=== PATIENT | female | born 2000 | race Caucasian/White ===

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

== ENCOUNTER 2019-01-03 23:16 | Emergency (ER) | payer OTHER ==
[~2019-01-03] VITALS: Ht 167.6 cm; Wt 78.2 kg
[~2019-01-03 23:16] MED LIST: BIRTH CONTROL; ULTRAM 50MG TAB50 MG PO; ZOFRAN ODT4 MG PO; ZONEGRAN 100MG100 MG PO
[2019-01-03 23:27] VITALS: BP 127/66; PULSE 83; TEMP 99.2
== END 2019-01-04 00:58 | disposition home or self-care (01) ==
LOC: COL.ER 23:16
DX: S56.911A Strain of unspecified muscles, fascia and tendons at forearm level, right arm, initial encounter (principal); R56.9 Unspecified convulsions; Z90.89 Acquired absence of other organs; X50.1XXA Overexertion from prolonged static or awkward postures, initial encounter; Y93.54 Activity, bowling; Y92.39 Other specified sports and athletic area as the place of occurrence of the external cause